=== PATIENT | female | born 1950 | race Caucasian/White ===

== ENCOUNTER 2017-03-04 23:12 | Emergency (ER) | payer MEDICARE, BC ==
[2017-03-04] MEDS ORDERED: NITROGLYCERIN SL TABS 0.4 MG TAB SUBLINGUAL ONE (23:30)
[2017-03-05 04:54] LABS: Partial Thromboplastin Time 25.1 sec (22.0-30.0); Prothrombin Time 10.3 sec (9.0-12.0)
[2017-03-05 04:57] LABS: Basophils # (A) 0.1 k/uL (0-0.2); Basophils % (A) 1 %; CH 28.9; CHCM 33.6; Eosinophils # (A) 0.3 k/uL (0-0.7); Eosinophils % (A) 3 %; HCT 37.8 % (34.0-46.0); HDW 2.52; HGB 12.9 gm/dL (11.4-16.0); Luc # (Auto) 0.14; Luc % (Auto) 2; Lymphocytes # (A) 2.5 k/uL (1.0-4.8); Lymphocytes % (A) 25 %; MCH 29.6 pg (25.0-35.0); MCHC 34.2 g/dL (31.0-37.0); MCV 86.5 fL (80.0-100.0); Mean Platelet Volume 6.8; Monocytes # (A) 0.5 k/uL (0-1.0); Monocytes % (A) 5 %; Neutrophils # (A) 6.4 k/uL (1.3-7.7); Neutrophils % (A) 65 %; RBC 4.37 m/uL (3.80-5.40); RDW 14.2 % (11.5-15.5); WBC 9.9 k/uL (3.8-10.6); WBC (Perox) 9.71
[2017-03-05 05:26] LABS: ALT 33 U/L (9-52); AST 26 U/L (14-36); Alkaline Phosphatase 77 U/L (38-126); Anion Gap 13 mmol/L; Blood Urea Nitrogen 25 mg/dL (7-17); Calcium 9.4 mg/dL (8.4-10.2); Carbon Dioxide 24 mmol/L (22-30); Chloride 103 mmol/L (98-107); Glucose 106 mg/dL (74-99); Magnesium 1.8 mg/dL (1.6-2.3); Non-African American GFR(MDRD) >60 (>60 ml/min/1.73 sqM); Phosphorous 4.2 mg/dL (2.5-4.5); Potassium 4.2 mmol/L (3.5-5.1); Sodium 140 mmol/L (137-145); Total Bilirubin 0.5 mg/dL (0.2-1.3); Total Protein 6.9 g/dL (6.3-8.2)
[2017-03-05 05:27] LABS: Creatine Kinase 94 U/L (30-135); Creatine Kinase MB 0.7 ng/mL (0.0-2.4); Troponin I <0.012 ng/mL (0.000-0.034)
[2017-03-05] MEDS ORDERED: SODIUM CHLORIDE 0.9% 1,000 ML BAG ONE (07:07)
--- NOTE | 2017-03-05 08:15 | XR ---
EXAMINATION TYPE: XR chest 2V DATE OF EXAM: 03/05/2017 COMPARISON: NONE HISTORY: Chest pain. TECHNIQUE: Frontal and lateral views of the chest are obtained. FINDINGS: There is no focal air space opacity, pleural effusion, or pneumothorax seen. The cardiac silhouette size is within normal limits. Prominent right pericardial triangular opacity favors fat pa d. The osseous structures are intact. IMPRESSION: No acute cardiopulmonary process. A preliminary report for this study was provided by [facility].
== END 2017-03-05 01:50 | disposition left against medical advice (07) ==
LOC: EC 23:12
DX: R07.89 Other chest pain (principal); E11.9 Type 2 diabetes mellitus without complications; I10 Essential (primary) hypertension; Z79.84 Long term (current) use of oral hypoglycemic drugs; Z79.899 Other long term (current) drug therapy; Z88.2 Allergy status to sulfonamides
CPT/HCPCS: 36415; 71020; 80053; 82550; 82553; 83735; 84100; 84484; 85025; 85610; 85730; 93005; 99285

== ENCOUNTER → 2017-05-29 | Outpatient (CLI) | payer MEDICARE, BC ==
--- NOTE | 2017-05-29 21:41 | CONS ---
CONSULTATION REASON FOR CONSULTATION: Sleep apnea. HISTORY OF PRESENT ILLNESS: This is a 67-year-old female patient was diagnosed having obstructive sleep apnea back in 2008. At that time, the patient's evaluation was done through Dr. Solitario and the patient was found to have an AHI of 9.4, worse during REM with an AHI of 20.6, during REM sleep. She was given CPAP therapy at a pressure of 8 cm of water. She has been using the same CPAP machine since 2008. During a recent trip to [place] her CPAP machine blew probably due to using higher voltage power source. As such, the machine is not functioning. The patient is currently very symptomatic having loud snoring apneas and hypersomnia and sleepiness and she has become very symptomatic and her sleep quality is poor. She is going to bed around 10:00 pm, wakes up 7:00 am in the morning. I noted only 7-8 pounds weight gain since her last evaluation back in 2008. She was diagnosed also with diabetes mellitus and currently she is on metformin. She is on Mirapex for chronic restless legs syndrome. No sleepwalking. No sleeptalking. No nocturnal heartburn. No grinding of the teeth. PAST MEDICAL HISTORY: 1. Obesity. 2. Obstructive sleep apnea. 3. Diabetes mellitus. 4. Restless legs syndrome. 5. Anxiety/depression. SURGICAL HISTORY: Includes back surgery, cataract surgery, wrist surgery. DRUG ALLERGIES: ARE TO SULFA. OUTPATIENT MEDICATIONS ARE: 1. Metformin. 2. Mirapex. 3. Effexor. 4. Hydrochlorothiazide. SOCIAL HISTORY: Nonsmoker. No alcohol. No history of IV drugs. No substance abuse. FAMILY HISTORY: Negative for any sleep apnea. REVIEW OF SYSTEMS: 12-point review of system was done. CONSTITUTIONAL: Negative for fever, chills, night sweats. No significant weight gain and weight gain was in order of 8 pounds. HEENT: Negative for any runny nose, postnasal drainage. CARDIOVASCULAR: Negative for angina or palpitation. Pulmonary: No cough or sputum production, no sinus or wheezing. GI is negative for nausea, vomiting, abdominal pain or GI bleed. negative for dysuria, frequency, urgency. Musculoskeletal negative for any chronic aches and pains. Skin is negative for ulcers or wounds or rashes. Neuro is negative for any focal neurological deficits, seizure activity, ataxia. Psych is positive for depression and anxiety. Sleep is negative for any sleepwalking or sleep talking. No paralysis. No hallucinations. No cataplexy. Most of the positive findings otherwise were mentioned above in history of present illness. A 12-point review of system was done. PHYSICAL EXAMINATION: BP is 138/76, pulse 100, respirations 16, temperature 98.1, saturation 95% on room air. Weight is 207, height is 5 feet 6 inches neck size 14 3/4 of an inch. GENERAL APPEARANCE: Calm comfortable. HEENT short neck, crowding of posterior pharynx. No goiter or neck masses. LUNGS: Clear to auscultation. HEART: Sounds regular rhythm. Normal S1, S2. No S3, S4. No murmurs. ABDOMEN: Soft. No organomegaly. EXTREMITIES: No edema. No cyanosis or clubbing. Neuro is alert and oriented times three. No focal neurological deficits. Skin is negative for ulcers, wounds or cellulitis. Scalp negative for any joint deformities or arthritis. IMPRESSION: 1. Symptomatic obstructive sleep apnea. Based on the previous study from 2008. The patient had an AHI of 9.4, which was being treated with a CPAP pressure of 8 cm of water. She has a nonfunctioning CPAP unit. 2. Obesity with a body mass index of 39.7. 3. Diabetes mellitus. Currently on oral hypoglycemics. 4. Restless leg syndrome, currently on Mirapex. 5. Chronic anxiety/depression. PLAN: 1. We will offer this patient CPAP titration. The patient will come into the sleep center to undergo a CPAP titration during which the new machine will be given to her with an updated pressure and mask interface. She prefers nasal pillow will suggest AirFit P10 nasal pillows. 2. Continue Mirapex. 3. Continue Effexor. 4. Encourage weight loss. 5. See me back following the titration for further adjustment and advice. MMODL / IJN: [id number] /
== END | disposition home or self-care (01) ==
LOC: SLEEP 14:37
PROVIDERS: ATTEND Internal Medicine Critical Care Medicine
DX: G47.33 Obstructive sleep apnea (adult) (pediatric) (principal); E66.9 Obesity, unspecified; Z68.39 Body mass index [BMI] 39.0-39.9, adult; E11.9 Type 2 diabetes mellitus without complications; G25.81 Restless legs syndrome; F41.9 Anxiety disorder, unspecified; F32.9 Major depressive disorder, single episode, unspecified; Z79.899 Other long term (current) drug therapy
CPT/HCPCS: 99211

== ENCOUNTER → 2018-03-26 | Outpatient (CLI) | payer MEDICARE, BC ==
--- NOTE | 2018-03-28 13:10 | MM ---
Reason for exam: screening (asymptomatic). Last mammogram was performed 2 years and 4 months ago. History: Patient is postmenopausal. Benign right mammotome panel of the right breast, October 27, 2005. Benign stereotactic core biopsy of the right breast, March 21, 2001. Core biopsy of the right breast. Physical Findings: A clinical breast exam by your physician is recommended on an annual basis and results should be correlated with mammographic findings. MG 3D Screening Mammo W/Cad Bilateral CC and MLO view(s) were taken. Prior study comparison: December 07, 2015, bilateral MG diagnostic mammo w CAD [facility]. September 18, 2014, bilateral MG screening mammo w CAD. There are scattered fibroglandular densities. Finding: There are typically benign round calcifications in the left breast. Previous mammotome biopsy in the right breast x 2. There is no discrete abnormality. ASSESSMENT: Benign, BI-RAD 2 RECOMMENDATION: Routine screening mammogram of both breasts in 1 year.
== END | disposition home or self-care (01) ==
LOC: RADMAMWWP 11:09
PROVIDERS: ATTEND Family Medicine
DX: Z12.31 Encounter for screening mammogram for malignant neoplasm of breast (principal)
CPT/HCPCS: 77063; 77067

== ENCOUNTER → 2019-04-22 | Outpatient (CLI) | payer MEDICARE, BC ==
--- NOTE | 2019-04-22 14:41 | BD ---
EXAMINATION TYPE: Axial Bone Density DATE OF EXAM: 04/22/2019 COMPARISON: 02.14.2013 CLINICAL HISTORY: 68 YR OLD FEMALE....ICD-10 CODE: Z78.0 POST MENOPAUSAL Height: 59.8 Weight: 212 FRAX RISK QUESTIONS: Family History (Parent hip fracture): YES RISK FACTORS HISTORY OF: Surgery to Spine DISC SURG ONLY Family History of Osteoporosis: MOTHER AND SISTER, MOTHER WITH HIP FX Postmenopausal woman: YES AT ABOUT 54 YRS OLD MEDICATIONS: Additional Medications: BP MEDS, EFFEXOR, ORAL DIABETIC MEDS, Additional History: HYPERTENSION, DIABETIC , ANXIETY EXAM MEASUREMENTS: Bone mineral densitometry was performed using the [employer]. Bone mineral density as measured about the Lumbar spine is: ----- L1-L4(G/cm2): 1.461 T Score Values are as follows: ----- L1: 0.1 ----- L2: 0.8 ----- L3: 2.4 ----- L4: 5.7 ----- L1-L4: 2.3 Bone mineral density has: Increased 6.1% SINCE 02.14.2017 STUDY Bone mineral density about the R hip (g/cm2): 1.126 Bone mineral density about the L hip (g/cm2): 1.124 T Score values are as follows: -----R Neck: 0.1 -----L Neck: 0.6 -----R Total: 0.9 -----L Total: 0.9 Bone mineral density has: Decreased -1.1 % SINCE...02/14/2017 STUDY FRAX%s: THERE IS A 10.5% CHANCE FOR A MAJOR OSTEOPOROTIC FX AND 0.3% FOR HIP.....PROBABILITY FOR F X IN 10 YRS TIME IMPRESSION: Osteopenia (T Score between -2.5 and -1). There is slightly increased risk of fracture and the patient may be considered for treatment. Re-Screen 2-5 years. NOTE: T-SCORE=SD OF THE YOUNG ADULT MEAN.
--- NOTE | 2019-04-24 09:33 | MM ---
Reason for exam: screening (asymptomatic). Last mammogram was performed 1 year and 1 month ago. History: Patient is postmenopausal. Benign right mammotome panel of the right breast, October 27, 2005. Benign stereotactic core biopsy of the right breast, March 21, 2001. Core biopsy of the right breast. Physical Findings: A clinical breast exam by your physician is recommended on an annual basis and results should be correlated with mammographic findings. MG 3D Screening Mammo W/Cad Bilateral CC and MLO view(s) were taken. Prior study comparison: March 26, 2018, bilateral MG 3d screening mammo w/cad. December 07, 2015, bilateral MG diagnostic mammo w CAD [facility]. The breast tissue is almost entirely fat. Previous mammotome biopsy in the right breast. No significant changes when compared with prior studies. ASSESSMENT: Benign, BI-RAD 2 RECOMMENDATION: Routine screening mammogram of both breasts in 1 year.
== END | disposition home or self-care (01) ==
LOC: RADBDWWP 13:14
PROVIDERS: ATTEND Family Medicine
DX: Z12.31 Encounter for screening mammogram for malignant neoplasm of breast (principal); M85.80 Other specified disorders of bone density and structure, unspecified site; Z78.0 Asymptomatic menopausal state
CPT/HCPCS: 77063; 77067; 77080

== ENCOUNTER → 2020-04-30 | Outpatient (CLI) | payer MEDICARE, BC ==
--- NOTE | 2020-05-04 13:51 | MM ---
Reason for exam: screening (asymptomatic). Last mammogram was performed 1 year ago. History: Patient is postmenopausal. Benign right mammotome panel of the right breast, October 27, 2005. Benign stereotactic core biopsy of the right breast, March 21, 2001. Core biopsy of the right breast. Physical Findings: A clinical breast exam by your physician is recommended on an annual basis and results should be correlated with mammographic findings. MG 3D Screening Mammo W/Cad Bilateral CC and MLO view(s) were taken. Prior study comparison: April 22, 2019, bilateral MG 3d screening mammo w/cad. March 26, 2018, bilateral MG 3d screening mammo w/cad. There are scattered fibroglandular densities. Previous mammotome biopsy in the right breast. No significant changes when compared with prior studies. ASSESSMENT: Negative, BI-RAD 1 RECOMMENDATION: Routine screening mammogram of both breasts in 1 year.
== END | disposition home or self-care (01) ==
LOC: RADMAMWWP 09:38
PROVIDERS: ATTEND Family Medicine
DX: Z12.31 Encounter for screening mammogram for malignant neoplasm of breast (principal)
CPT/HCPCS: 77063; 77067

== ENCOUNTER → 2021-05-06 | Outpatient (CLI) | payer MEDICARE, BC ==
--- NOTE | 2021-05-09 11:16 | MM ---
Reason for exam: screening (asymptomatic). Last mammogram was performed 1 year ago. History: Patient is postmenopausal. Benign right mammotome panel of the right breast, October 27, 2005. Benign stereotactic core biopsy of the right breast, March 21, 2001. Core biopsy of the right breast. Physical Findings: A clinical breast exam by your physician is recommended on an annual basis and results should be correlated with mammographic findings. MG 3D Screening Mammo W/Cad Bilateral CC and MLO view(s) were taken. Prior study comparison: April 30, 2020, bilateral MG 3d screening mammo w/cad. April 22, 2019, bilateral MG 3d screening mammo w/cad. March 26, 2018, bilateral MG 3d screening mammo w/cad. Previous mammotome biopsy in the right breast x 2. There is no discrete abnormality. ASSESSMENT: Benign, BI-RAD 2 RECOMMENDATION: Routine screening mammogram of both breasts in 1 year.
== END | disposition home or self-care (01) ==
LOC: RADMAMWWP 10:14
PROVIDERS: ATTEND Family Medicine
DX: Z12.31 Encounter for screening mammogram for malignant neoplasm of breast (principal); Z78.0 Asymptomatic menopausal state
CPT/HCPCS: 77063; 77067

== ENCOUNTER → 2022-05-16 | Outpatient (CLI) | payer MEDICARE, BC ==
--- NOTE | 2022-05-17 16:50 | MM ---
Reason for Exam: Screening (asymptomatic). Last screening mammogram was performed 12 month(s) ago. Patient History: Menarche at age 11. First Full-Term at age 17. Postmenopausal. Core Biopsy on the Right side. 10/27/2005, Benign Core Biopsy on the right side. 03/21/2001, Benign Stereotactic Core Biopsy on the right side. Risk Values: Liset 5 year model risk: 2.1%. NCI Lifetime model risk: 6.0%. Prior Study Comparison: 04/22/2019 Bilateral Screening Mammogram, [facility]. 04/30/2020 Bilateral Screening Mammogram, [facility]. 05/06/2021 Bilateral Screening Mammogram, [facility]. Tissue Density: There are scattered fibroglandular densities. Findings: Analyzed By CAD. Pattern appears stable. Core markers are within the right breast. No suspicious groups of microcalcifications, spiculated or lobular masses, architectural distortion or other secondary signs of malignancy are mammographically apparent. Overall Assessment: Benign, BI-RAD 2 Management: Screening Mammogram of both breasts in 1 year. A negative mammogram report should not preclude additional follow up of suspicious palpable abnormalities. Patient should continue monthly self breast exam. A clinical breast exam by your physician is recommended on an annual basis and results should be correlated with mammographic findings. Electronically signed and approved by: Aidan Armenta D.O. Radiologis
--- NOTE | 2022-05-19 08:01 | BD ---
EXAMINATION TYPE: Axial Bone Density DATE OF EXAM: 05/16/2022 COMPARISON: NONE CLINICAL HISTORY: 71 years year old Female. ICD-10 CODE: Z78.0 POST MENOPAUSAL SYMPTOMS Height: 5 FT Weight: 189 FRAX RISK QUESTIONS: Alcohol (3 or more units per day): NO Family History (Parent hip fracture): YES Glucocorticoids (More than 3mos): NO (Ex: prednisone, prednisolone, methylprednisolone, dexamethasone, and hydrocortisone). History of Fracture in Adulthood: NO Secondary Osteoporosis: 1. Type 1 Diabetes: NO 2. Hyperthyroidism: NO 3. Menopause before 45: NO 4. Malnutrition: NO 5. Chronic liver disease: NO Rheumatoid Arthritis: NO Current Tobacco Use: NO RISK FACTORS HISTORY OF: Surgery to Spine/Hip(right/left)/Wrist (right/left): LUMBAR SURG HERNIATED DISC When: IN THE 80'S Family History of Osteoporosis: YES Active: YES Diet low in dairy products/other sources of calcium: NO Postmenopausal woman: YES Take estrogen and/or progesterone medications: NO Lost more than 2 inches in height since high school: NO Frequent falls: NO Poor Health: GOOD Hyperparathyroidism: NO Adrenal Insufficiency: NO MEDICATIONS: Additional Medications:, METFORMIN, MIRAPEX, HZTZ,EFFEXOR, OZEMBIC, CRESTOR, Additional History: 2019 IMAGES NOT AVAILABLE FOR COMPARISON EXAM MEASUREMENTS: Bone mineral density about the R hip (g/cm2): 1.055 Bone mineral density about the L hip (g/cm2): 1.126 T Score values are as follows: -----R Neck: 0.1 -----L Neck: 0.6 -----R Total: 0.5 -----L Total: 0.7 Bone mineral density has: DECREASED -4.7 % since study of: 2012 Bone mineral density about the L Wrist (g/cm2): 0.708 T Score values are as follows: -----Dist. R+U: 1.7 -----Prox. R+U: 0.2 -----Radius total: 0.6 FIRST TIME WRIST HAS BEEN DONE FRAX%s: The graph provided illustrates a 6.4 % chance for a major osteoporotic fx and a 0.3 % chance for the hips probability for fx in 10 years time. IMPRESSION: Normal (Values between +1 and -1 indicate normal bone mass). Consider repeating this study in 5 year s or sooner if there is some new clinical indication. NOTE: T-SCORE=SD OF THE YOUNG ADULT MEAN.
== END | disposition home or self-care (01) ==
LOC: RADMAMWWP 14:01
PROVIDERS: ATTEND Family Medicine
DX: Z12.31 Encounter for screening mammogram for malignant neoplasm of breast (principal); Z78.0 Asymptomatic menopausal state
CPT/HCPCS: 77063; 77067; 77080

== ENCOUNTER → 2023-06-26 | Outpatient (CLI) | payer MEDICARE, BC ==
--- NOTE | 2023-06-27 07:48 | MM ---
Reason for Exam: Screening (asymptomatic). Last mammogram was performed 1 year(s) and 1 month(s) ago. Patient History: Menarche at age 11. First Full-Term at age 17. Postmenopausal. Core Biopsy on the Right side. 10/27/2005, Benign Core Biopsy on the right side. 03/21/2001, Benign Stereotactic Core Biopsy on the right side. Risk Values: Liset 5 year model risk: 2.1%. NCI Lifetime model risk: 5.4%. Prior Study Comparison: 04/30/2020 Bilateral Screening Mammogram, [facility]. 05/06/2021 Bilateral Screening Mammogram, [facility]. 05/16/2022 Bilateral MG 3D screening mammo w/cad, [facility]. Tissue Density: There are scattered fibroglandular densities. Findings: Analyzed By CAD. There is no suspicious group of microcalcifications or new suspicious mass in either breast. There are 2 biopsy clips in the right breast. Overall Assessment: Benign, BI-RAD 2 Management: Screening Mammogram of both breasts in 1 year. A clinical breast exam by your physician is recommended on an annual basis and results should be correlated with mammographic findings. Note on Liset scores and lifetime risk: 1. A Liset score greater than 3% is considered moderate risk. If this is the case, consider specialist referral to assess eligibility for a risk reducing agent. If overall lifetime risk for the development of breast cancer is 20% or higher, the patient may qualify for future screening with alternating mammogram and breast MRI. Electronically signed and approved by: Eddie De La Fuente D.O.
== END | disposition home or self-care (01) ==
LOC: RADMAMWWP 10:59
PROVIDERS: ATTEND Family Medicine
DX: Z12.31 Encounter for screening mammogram for malignant neoplasm of breast (principal); Z78.0 Asymptomatic menopausal state
CPT/HCPCS: 77063; 77067